=== PATIENT | female | born 1970 | race Caucasian/White ===

== ENCOUNTER 2016-10-24 16:42 | Inpatient (IN) ==
[2016-10-24 19:21] LABS: BUN/Creatinine Ratio 6 (6-26); Calcium 9.8 mg/dL (8.6-10.8); Carbon Dioxide 17 mEq/L (19-29); Chloride 89 mEq/L (98-109); Glucose 84 mg/dL (70-99); Osmolality,Calculated 250 (280-300); Sodium 122 mEq/L (136-145); eGFR For African Americans > 60 (> 60); eGFR For Non-African Americans > 60 (> 60)
[2016-10-24 19:37] LABS: Blood Urea Nitrogen 4 mg/dL (7-20)
--- NOTE | 2016-10-24 20:48 | Emergency Department Note ---
Disposition Clinical Impression: Hyponatremia, Hypomagnesemia, Chronic alcohol abuse Disposition: Admitted As Inpatient Condition: Good Time of Disposition: 22:46 General Adult HPI - General Chief complaint: ED Dizziness Stated complaint: Spasms/Electrolites are low Time Seen by Provider: 10/24/16 17:21 Source: patient Limitations: no limitations Nursing Notes Reviewed: Yes Vital Signs Reviewed: Yes - History of Present Illness HPI Narrative: 46-year-old female history of hypertension, hyperlipidemia, chronic alcohol presents to the ED for weakness and concern for electrolyte abnormality. She takes hydrochlorothiazide and Lasix on a daily basis. She has been drinking 6 glasses of water every day. She drinks roughly 2 beers a day last drink last night. She has been feeling weak and lightheaded over the past few days reports this feels similar 8 months ago when her sodium level was low. She has been urinating more often than usual. Denies any dysuria or hematuria. Denies any history of diabetes. Denies any recent illness, fever, cough, chest pain, shortness of breath or abdominal pain. Has been eating normally. No known history cancer. Pain Scale: 10 - Related Data Home Medications Medication Instructions Recorded Confirmed Montelukast [Singulair] 10 mg PO DAILY 12/05/15 10/24/16 Ranitidine HCl [Heartburn Relief] 300 mg PO DAILY 12/05/15 10/24/16 Amlodipine [Norvasc] 5 mg PO DAILY 04/09/16 10/24/16 Ibuprofen [Motrin] 800 mg PO Q6H PRN 04/09/16 10/24/16 Allopurinol [Zyloprim 100 MG] 100 mg PO DAILY 10/24/16 10/24/16 Gabapentin [Neurontin] 100 mg PO QID 10/24/16 10/24/16 Lansoprazole [Prevacid] 30 mg PO DAILY 10/24/16 10/24/16 Losartan [Cozaar] 25 mg PO DAILY 10/24/16 10/24/16 Mometasone/Formoterol [Dulera 200 2 puff IH BID 10/24/16 10/24/16 Mcg/5 Mcg Inhaler] Multivitamin with Iron 1 each PO DAILY 10/24/16 10/24/16 [Multivitamins with Iron] Ondansetron HCl [Zofran] 4 mg PO Q8H PRN 10/24/16 10/24/16 OxyCODONE/APAP 5/325 [Percocet 1 each PO Q6H PRN 10/24/16 10/24/16 5/325 MG] Simvastatin [Zocor] 20 mg PO HS 10/24/16 10/24/16 Umeclidinium [place] [Incruse 62.5 mcg IH DAILY 10/24/16 10/24/16 Ellipta] Previous Rx's Medication Instructions Recorded Albuterol Neb [Proventil Neb] 2.5 mg IH Q4HR PRN #120 vial.neb 04/14/16 Albuterol Sulfate [Proair Hfa] 2 puff IH Q4-6H PRN #1 inh 04/14/16 Allergies Allergy/AdvReac Type Severity Reaction Status Date / Time hydrocodone [From Vicodin] AdvReac Hives Verified 03/31/16 08:10 sulfamethoxazole AdvReac Itching Verified 03/31/16 08:10 [From Bactrim] trimethoprim [From Bactrim] AdvReac Itching Verified 03/31/16 08:10 All systems ED: reviewed and negative except as stated. Constitutional: Reports: weakness. Denies: fever, chills Eyes: Denies: vision change Cardiovascular: Denies: chest pain, palpitations, dyspnea on exertion Respiratory: Denies: cough, dyspnea Gastrointestinal: Denies: abdominal pain, nausea, vomiting Genitourinary: Reports: frequency. Denies: urgency, dysuria, hematuria Musculoskeletal: Denies: back pain Neurological: Reports: weakness. Denies: headache, numbness, confusion, vertigo Endocrine: Reports: polyuria. Denies: polydipsia Past Medical History - Past Medical History Attestation: Yes The following information was validated with the patient. 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 Absent : tenderness - Respiratory Respiratory exam: Present: normal lung sounds bilaterally. Absent: respiratory distress, wheezes - Cardiovascular Cardiovascular exam: Present: regular rate, normal rhythm, normal heart sounds. Absent: systolic murmur, diastolic murmur - Abdominal Exam Abdominal exam: Present: soft, Non-Tender, normal bowel sounds. Absent: tenderness, distention, guarding, rebound, rigidity - Extremities Exam Extremities exam: Present: normal inspection, full ROM, normal capillary refill. Absent: tenderness, pedal edema, calf tenderness - Back Exam Back exam: Present: normal inspection, full ROM. Absent: tenderness - Neurological Exam Neurological exam: Present: alert, oriented X3, CN II-XII intact, normal gait. Absent: motor sensory deficit - Expanded Neurological Exam Patient oriented to: Present: person, place, time Speech: Present: fluid speech Cranial nerves: EOM function (II, III, IV, ): Normal, facial sensation (V): Normal, facial palsy (VII): Normal, gag reflex (IX): Normal, spinal accessory function (XI): Normal, tongue deviation (XII): Normal Cerebellar function: normal gait, Romberg normal Motor strength - LUE: 5/5 Motor strength - RUE: 5/5 Motor strength - LLE: 5/5 Motor strength - RLE: 5/5 Upper motor neuron exam: tommy neglect: Absent bilaterally, pronator drift: Absent bilaterally Sensory exam upper extremity: light touch: Normal Sensory exam lower extremity: light touch: Normal - Psychiatric Psychiatric exam: Present: normal affect, normal mood - Skin Skin exam: Present: warm, dry, intact, normal color Course Course Narrative: 46-year-old female presented with weakness and concern for electrolyte abnormality. Her sodium is 122. This is the lowest it has been in over a year. This is likely due to a renal etiology as she takes multiple diuretics. No known history of cancer. Patients otherwise in no apparent distress. Neurologic exam is normal without any vocal neural deficits. Gait is normal. Admits to drinking 2 beers last night from today. Lungs are clear auscultation bilaterally. Heart's regular rate and rhythm. Abdomen is soft nontender nondistended. She will need admission for hyponatremia possibly from a beer potomania. Her magnesium is low at 1.5. Will give 2 g magnesium here. Labs are otherwise unremarkable. Urine is not consistent with infection however it is diluted. She is started on normal saline maintenance at 125 mL per hour. Will carefully watch the correction of sodium and to not correct to quickly to prevent [place] Myelinolysis - Consultations Consultation #1: Spoke with on-call hospitalist meredith You to admit for hyponatremia. No further orders at this time Time: 22:45 Vital Signs Temperature 98.2 F 10/24/16 17:19 Pulse Rate 94 10/24/16 17:19 Respiratory Rate 18 10/24/16 17:19 Blood Pressure 182/104 10/24/16 17:19 O2 Sat by Pulse Oximetry 97 10/24/16 17:19 Temperature 98.1 F 10/25/16 00:26 Pulse Rate 90 10/25/16 00:26 Respiratory Rate 16 10/25/16 00:26 Blood Pressure 142/86 10/25/16 00:26 O2 Sat by Pulse Oximetry 96 10/25/16 00:26 Oxygen Delivery Oxygen Delivery Room Air Medical Decision Making - Medical Records Medical records reviewed: Yes I reviewed the patient's medical records. - Lab Data Lab results reviewed: Yes I reviewed the patient's lab results. Result diagrams: 10/24/16 18:45 10/24/16 23:37 Lab Results 10/24/16 10/24/16 10/24/16 Range/Units 18:45 18:45 18:45 WBC 10.7 (4.3-11.1) K/mcL RBC 4.29 (3.82-4.97) M/mcL Hgb 12.1 (11.5-15.4) g/dL Hct 35.7 (35.3-44.9) % MCV 83.2 (83.0-100.0) fL MCH 28.2 (28.0-33.3) pg MCHC 33.9 (31.6-35.5) g/dL RDW 15.6 H (11.5-14.5) % Plt Count 358 (140-400) K/mcL MPV 11.1 (9.4-12.4) fL Immature Gran % 0.4 (0-4) % Seg Neutrophils % 72.6 % Lymphocytes % 17.9 % Monocytes % 7.4 % Eosinophils % 0.9 % Basophils % 0.8 % Neutrophils # 7.7 (1.6-8.9) K/mcL Lymphocytes # 1.9 (0.6-4.6) K/mcL Monocytes # 0.8 (0.0-1.3) K/mcL Eosinophils # 0.1 (0.0-0.6) K/mcL Basophils # 0.1 (0.0-0.2) K/mcL PT 11.8 (9.4-12.1) Seconds INR 1.1 APTT 29.4 (26.0-36.0) Seconds Sodium 122 L (136-145) mEq/L Potassium 4.0 (3.5-4.5) mEq/L Chloride 89 L (98-109) mEq/L Carbon Dioxide 17 L (19-29) mEq/L BUN 4 L (7-20) mg/dL Creatinine 0.67 (0.57-1.11) mg/dL Est GFR ( Amer) > 60 (> 60) Est GFR (Non-Af Amer) > 60 (> 60) BUN/Creatinine Ratio 6 (6-26) Glucose 84 (70-99) mg/dL Calculated Osmolality 250 L (280-300) Calcium 9.8 (8.6-10.8) mg/dL Magnesium 1.5 L (1.6-2.6) mg/dL Total Bilirubin 0.8 (0.2-1.2) mg/dL Direct Bilirubin 0.3 (0.0-0.5) mg/dL Indirect Bilirubin 0.5 (0.0-1.2) mg/dL AST 46 H (5-34) Units/L ALT 26 (0-55) Units/L Alkaline Phosphatase 85 (38-126) Units/L Serum Total Protein 8.1 (6.0-8.3) g/dL Albumin 4.2 (3.5-5.0) g/dL Globulin 3.9 H (2.4-3.5) g/dL Albumin/Globulin Ratio 1.1 (1.1-2.2) Urine Color (Yellow) Urine Clarity (Clear) Urine pH (5.0-8.0) pH Units Ur Specific [place] (1.010-1.025) Urine Protein (Neg-Trace) mg/dL Urine Glucose (UA) (Normal) mg/dL Urine Ketones (Negative) mg/dL Urine Blood (Negative) Urine Nitrite (Negative) Urine Bilirubin (Negative) Urine Urobilinogen (Normal) mg/dL Ur Leukocyte Esterase (Negative) Ur Culture Indicated? (NO) Urine Test (Negative) 10/24/16 10/24/16 10/24/16 Range/Units 20:40 20:40 23:37 WBC (4.3-11.1) K/mcL RBC (3.82-4.97) M/mcL Hgb (11.5-15.4) g/dL Hct (35.3-44.9) % MCV (83.0-100.0) fL MCH (28.0-33.3) pg MCHC (31.6-35.5) g/dL RDW (11.5-14.5) % Plt Count (140-400) K/mcL MPV (9.4-12.4) fL Immature Gran % (0-4) % Seg Neutrophils % % Lymphocytes % % Monocytes % % Eosinophils % % Basophils % % Neutrophils # (1.6-8.9) K/mcL Lymphocytes # (0.6-4.6) K/mcL Monocytes # (0.0-1.3) K/mcL Eosinophils # (0.0-0.6) K/mcL Basophils # (0.0-0.2) K/mcL PT (9.4-12.1) Seconds INR APTT (26.0-36.0) Seconds Sodium 125 L (136-145) mEq/L Potassium 3.6 (3.5-4.5) mEq/L Chloride 92 L (98-109) mEq/L Carbon Dioxide 22 (19-29) mEq/L BUN 4 L (7-20) mg/dL Creatinine 0.69 (0.57-1.11) mg/dL Est GFR ( Amer) > 60 (> 60) Est GFR (Non-Af Amer) > 60 (> 60) BUN/Creatinine Ratio 6 (6-26) Glucose 87 (70-99) mg/dL Calculated Osmolality 256 L (280-300) Calcium 9.4 (8.6-10.8) mg/dL Magnesium (1.6-2.6) mg/dL Total Bilirubin (0.2-1.2) mg/dL Direct Bilirubin (0.0-0.5) mg/dL Indirect Bilirubin (0.0-1.2) mg/dL AST (5-34) Units/L ALT (0-55) Units/L Alkaline Phosphatase (38-126) Units/L Serum Total Protein (6.0-8.3) g/dL Albumin (3.5-5.0) g/dL Globulin (2.4-3.5) g/dL Albumin/Globulin Ratio (1.1-2.2) Urine Color Yellow (Yellow) Urine Clarity Clear (Clear) Urine pH 6.0 (5.0-8.0) pH Units Ur Specific [place] 1.007 L (1.010-1.025) Urine Protein Negative (Neg-Trace) mg/dL Urine Glucose (UA) Normal (Normal) mg/dL Urine Ketones Negative (Negative) mg/dL Urine Blood Negative (Negative) Urine Nitrite Negative (Negative) Urine Bilirubin Negative (Negative) Urine Urobilinogen Normal (Normal) mg/dL Ur Leukocyte Esterase Negative (Negative) Ur Culture Indicated? NO (NO) Urine Test Negative (Negative) Attestation Statement - Attestation Attestation: I examined this patient and my medical decision-making was reviewed with the SMASH FIXER/PA/Advanced Practice Nurse/Resident Physician. I agree with the documented findings, disposition and treatment plan as described except to the extent set forth below.
[2016-10-24 20:53] LABS: Bilirubin,Urine Negative (Negative); Blood,Urine Negative (Negative); Clarity,Urine Clear (Clear); Color,Urine Yellow (Yellow); Glucose,Urine (UA) Normal (Normal); Ketones,Urine Negative (Negative); Leukocyte Esterase,Urine Negative (Negative); Nitrite,Urine Negative (Negative); Protein,Urine Negative (Neg-Trace); Specific Gravity,Urine 1.007 (1.010-1.025); Urobilinogen,Urine Normal (Normal)
[2016-10-24] MEDS ORDERED: 0.9 % Sodium Chloride 1,000 ML IVC SCH (21:00)
[2016-10-24 21:41] LABS: Magnesium 1.5 mg/dL (1.6-2.6)
[2016-10-24] MEDS ORDERED: Magnesium Sulfate 20 gm/500mL 20 GM/500 ML IV.SOLN IVC SCH (21:45)
[2016-10-24 22:54] LABS: Basophils # 0.1 K/mcL (0.0-0.2); Basophils % 0.8 %; Eosinophils # 0.1 K/mcL (0.0-0.6); Eosinophils % 0.9 %; Hematocrit 35.7 % (35.3-44.9); Hemoglobin 12.1 g/dL (11.5-15.4); Immature Granulocytes % 0.4 % (0-4); Lymphocytes # 1.9 K/mcL (0.6-4.6); Lymphocytes % 17.9 %; Mean Corpuscular HGB Conc 33.9 g/dL (31.6-35.5); Mean Corpuscular Hemoglobin 28.2 pg (28.0-33.3); Mean Corpuscular Volume 83.2 fL (83.0-100.0); Mean Platelet Volume 11.1 fL (9.4-12.4); Monocytes # 0.8 K/mcL (0.0-1.3); Monocytes % 7.4 %; Neutrophils # 7.7 K/mcL (1.6-8.9); Platelet Count 358 K/mcL (140-400); Red Blood Count 4.29 M/mcL (3.82-4.97); Red Cell Distribution Width 15.6 % (11.5-14.5); Segmented Neutrophils % 72.6 %
[2016-10-24] MEDS ORDERED: Ondansetron 4 MG/2 ML VIAL IVP ONE (22:57)
[2016-10-24 23:00] LABS: INR 1.1; Prothrombin Time 11.8 Seconds (9.4-12.1)
[2016-10-24 23:03] LABS: Activated Partial Thrombo Time 29.4 Seconds (26.0-36.0)
[2016-10-24 23:06] LABS: Alanine Aminotransferase 26 Units/L (0-55); Albumin 4.2 g/dL (3.5-5.0); Albumin/Globulin Ratio 1.1 (1.1-2.2); Alkaline Phosphatase 85 Units/L (38-126); Aspartate Amino Transferase 46 Units/L (5-34); Bilirubin,Direct 0.3 mg/dL (0.0-0.5); Bilirubin,Indirect 0.5 mg/dL (0.0-1.2); Bilirubin,Total 0.8 mg/dL (0.2-1.2); Globulin 3.9 g/dL (2.4-3.5); Total Protein 8.1 g/dL (6.0-8.3)
[2016-10-24 23:54] LABS: BUN/Creatinine Ratio 6 (6-26); Calcium 9.4 mg/dL (8.6-10.8); Carbon Dioxide 22 mEq/L (19-29); Chloride 92 mEq/L (98-109); Glucose 87 mg/dL (70-99); Osmolality,Calculated 256 (280-300); Potassium 3.6 mEq/L (3.5-4.5); Sodium 125 mEq/L (136-145); eGFR For African Americans > 60 (> 60); eGFR For Non-African Americans > 60 (> 60)
[2016-10-24 23:55] LABS: Blood Urea Nitrogen 4 mg/dL (7-20)
[2016-10-25 01:48] LABS: Amphetamine Screen,Urine Negative ng/mL (Cutoff=1000); Barbiturate Screen,Urine Negative ng/mL (Cutoff=200); Benzodiazepines Screen,Urine Negative ng/mL (Cutoff=200); Cannabinoid Screen,Urine Negative ng/mL (Cutoff = 50); Cocaine Screen,Urine Negative ng/mL (Cutoff= 300); Opiate Screen,Urine Negative ng/mL (Cutoff=300); Phencyclidine Screen,Urine Negative ng/mL (Cutoff=25)
--- NOTE | 2016-10-25 03:33 | Internal Med History&Physical ---
Date of Encounter: 10/25/16 Time of Encounter: 03:30 Assessment and Plan (1) Hyponatremia Current visit: Yes Status: Acute Hyponatremia likely multifactorial due to beer potomania and possibly induced by medications. Continue monitoring sodium level closely. Neuro checks. Avoid over correction of sodium levels. Discussed with patient. We will obtain a consultation with nephrology for further recommendations. (2) Hypomagnesemia Current visit: Yes Status: Acute Magnesium was supplemented via IV by emergency department staff. We will continue monitoring magnesium levels and replacing accordingly. (3) Chronic alcohol abuse Current visit: Yes Status: Acute (4) DVT prophylaxis Current visit: No Status: Acute Will give heparin prophylaxis according to hospital protocol. (5) Essential hypertension Current visit: No Status: Chronic Avoid thiazides or diuretic for hypertension management. Monitoring closely. (6) Cellulitis Current visit: Yes Status: Acute Confirm with the pharmacy and resume her home medications. As per the patient, cellulitis is doing well. Qualifiers: Site of cellulitis: extremity Site of cellulitis of extremity: lower extremity Laterality: right Qualified Code(s): L03.115 - Cellulitis of right lower limb Internal Medicine - H&P: HPI Chief complaint: "I think my sodium is low" Admitted From: Emergency Dept Plans for Post Hospital Care: Home History of present illness: Ms. Su is a 46 year old female with history of hypertension, hyperlipidemia, chronic alcohol, chronic pain presents to the ED for weakness and concern for electrolyte abnormality. She takes hydrochlorothiazide and Lasix on a daily basis. She has been drinking 6 glasses of water every day. She drinks roughly 2 beers a day last drink last night. She has been feeling weak and lightheaded over the past few days reports this feels similar last summer when her sodium level was low and was admitted to the [facility] Intensive Care Unit. She states has been urinating more often than usual. Denies any dysuria or hematuria, denies fever. The patient was recently discharged from another facility due to a cellulitis, she is taking antibiotics for an infection in her right lower extremity. Denies any history of diabetes. Denies any recent illness, fever, cough, chest pain, shortness of breath or abdominal pain. Has been eating normally. No known history cancer. Upon admission her sodium was 122, last sodium obtained is 125. The patient Lives in [facility], however she came to [place] because Recently a family member Was in the Hospital Because He Had a Drug Overdose. Past Med Surg Social Fam HX - Past Medical History Medical history: arthritis, asthma, GERD, hyperlipidemia, hypertension, other Psychiatric history: bipolar - Past Surgical History Surgical History: orthopedic, other (Left ankle and leg fracture repair surgery) - Social History Smoking Status: Never smoker Smokeless Tobacco Status: No Alcohol use: occasionally Drug use: none - Family History Mother Living Status: Still Living Hx Family Cardiac Disorders: Yes (HTN) Hx Family Cancer: Yes (Uterine CA) Father Hx Family Neurologic Disorders: Yes (CVA) Internal Medicine - H&P: Meds Montelukast [Singulair] 10 mg PO DAILY 12/05/15 [History] Ranitidine HCl [Heartburn Relief] 300 mg PO DAILY 12/05/15 [History] Amlodipine [Norvasc] 5 mg PO DAILY 04/09/16 [History] Ibuprofen [Motrin] 800 mg PO Q6H PRN 04/09/16 [History] Albuterol Neb [Proventil Neb] 2.5 mg IH Q4HR PRN #120 vial.neb 04/14/16 [Rx] Albuterol Sulfate [Proair Hfa] 2 puff IH Q4-6H PRN #1 inh 04/14/16 [Rx] Allopurinol [Zyloprim 100 MG] 100 mg PO DAILY 10/24/16 [History] Gabapentin [Neurontin] 100 mg PO QID 10/24/16 [History] Lansoprazole [Prevacid] 30 mg PO DAILY 10/24/16 [History] Losartan [Cozaar] 25 mg PO DAILY 10/24/16 [History] Mometasone/Formoterol [Dulera 200 Mcg/5 Mcg Inhaler] 2 puff IH BID 10/24/16 [ History] Multivitamin with Iron [Multivitamins with Iron] 1 each PO DAILY 10/24/16 [ History] Ondansetron HCl [Zofran] 4 mg PO Q8H PRN 10/24/16 [History] OxyCODONE/APAP 5/325 [Percocet 5/325 MG] 1 each PO Q6H PRN 10/24/16 [History] Simvastatin [Zocor] 20 mg PO HS 10/24/16 [History] Umeclidinium [place] [Incruse Ellipta] 62.5 mcg IH DAILY 10/24/16 [History] Allergies hydrocodone [From Vicodin] Adverse Reaction (Verified 03/31/16 08:10) Hives sulfamethoxazole [From Bactrim] Adverse Reaction (Verified 03/31/16 08:10) Itching trimethoprim [From Bactrim] Adverse Reaction (Verified 03/31/16 08:10) Itching All Systems PM: A 10-system review of systems was performed and is negative for pertinent findings except as documented above in the HPI. - Constitutional Constitutional: as per HPI - EENT Eyes: as per HPI, no change in vision, no discharge, no pain, no photophobia Ears: as per HPI, no ear discharge, no ear pain, no tinnitus Nose, mouth and throat: as per HPI, no dysphagia, no nasal discharge, no neck pain, no sore throat - Breasts Breasts: as per HPI - Cardiovascular Cardiovascular ROS IM: as per HPI, no chest pain, no diaphoresis, no dyspnea, no lightheadedness, no palpitations, no syncope - Respiratory Respiratory: as per HPI, no cough, no dyspnea, no wheezing, no excessive phlegm production - Gastrointestinal Gastrointestinal: as per HPI, no abdominal pain, no diarrhea, no hematemesis, no hematochezia, no melena, no nausea, no vomiting - Genitourinary Genitourinary: as per HPI, no change in urinary stream, no dysuria, no flank pain, no hematuria Menstruation: as per HPI - Musculoskeletal Musculoskeletal ROS IM: as per HPI, no numbness, no tingling - Integumentary Integumentary IM: as per HPI, no rash, no unusual bruising - Neurological Neurological ROS: as per HPI, no confusion, no convulsions, no focal weakness, no numbness, no tingling, no tremor(s) - Psychiatric Psychiatric: as per HPI - Endocrine Endocrine IM: as per HPI - Hematologic/Lymphatic Hematologic/Lymphatic: as per HPI, no easy bruising - Allergic/Immunologic Allergic/Immunologic: as per HPI - Constitutional Vitals: Temp Pulse Resp BP Pulse Ox 98.1 F 83 16 121/77 94 10/25/16 03:12 10/25/16 03:12 10/25/16 03:12 10/25/16 03:12 10/25/16 03:12 General appearance: Present: cooperative, A&O X 3, pleasant, obese Exam: She has multiple tattoos. - Head Head exam: Present: atraumatic, normocephalic - Eye Eye exam: Present: PERRL, conjuntiva pink, sclera anicteric Pupils: Present: PERRL - Neck Neck exam general surgery: Present: supple, trachea midline. Absent: lymphadenopathy - Respiratory Respiratory exam: Present: CTAB. Absent: accessory muscle use, rales, rhonchi, wheezes - Cardiovascular Cardiovascular exam: Present: RRR, +S1, +S2. Absent: diastolic murmur, gallop, rubs, systolic murmur - GI/Abdominal GI/Abdominal exam: Present: normal bowel sounds, soft, no peritoneal signs. Absent: distended, tenderness - Extremities Exam Extremities exam: Present: warm, radial pulses palpable and symetrical. Absent : calf tenderness, cyanotic, pedal edema - Neurological Exam Neurological exam: Present: CN II-XII intact, oriented X3, no focal deficits. Absent: pronater drift, facial droop, speech deficit - Skin Skin exam: Present: dry, intact Internal Med - H&P Results - Labs CBC & Chem 7: 10/24/16 18:45 10/24/16 23:37
[2016-10-25] MEDS ORDERED: Acetaminophen 325 MG TABLET PO PRN (03:56)
[2016-10-25] MEDS ORDERED: Naloxone 0.4 MG/ML INJ IVP PRN (03:56)
[2016-10-25] MEDS ORDERED: Magnesium Sulfate 2 GM in D5% in Water 100 ML IVPB ONE (04:01)
[2016-10-25] MEDS ORDERED: *HR* LORazepam 2 MG/ML VIAL IVP PRN ×2 (04:18)
[2016-10-25] MEDS: *HR* OxyCODONE/APAP 5/325 TABLET PO PRN ×3 (04:54→18:22)
[2016-10-25] MEDS: *HR* Heparin 5,000 UNIT/ML VIAL SQ SCH ×2 (04:55→18:23)
[2016-10-25 05:43] LABS: BUN/Creatinine Ratio 6 (6-26); Calcium 9.6 mg/dL (8.6-10.8); Carbon Dioxide 21 mEq/L (19-29); Chloride 97 mEq/L (98-109); Glucose 96 mg/dL (70-99); Osmolality,Calculated 269 (280-300); Potassium 3.4 mEq/L (3.5-4.5); Sodium 131 mEq/L (136-145); eGFR For African Americans > 60 (> 60); eGFR For Non-African Americans > 60 (> 60)
[2016-10-25 05:49] LABS: Blood Urea Nitrogen 4 mg/dL (7-20)
[2016-10-25] MEDS: Magnesium Oxide 400 MG TABLET PO SCH ×2 (09:11→20:54)
[2016-10-25] MEDS: Thiamine (B-1) 100 MG TABLET PO SCH (09:11)
[2016-10-25] MEDS: Vitamin B Complex/Vit C/Vit E 1 EACH TABLET PO SCH (09:11)
[2016-10-25] MEDS: Folic Acid 1 MG TABLET PO SCH (09:11)
[2016-10-25] MEDS: *HR* LORazepam 2 MG/ML VIAL IVP PRN ×2 (09:12→23:18)
--- NOTE | 2016-10-25 13:32 | Nephrology Consult Note ---
Date of Encounter: 10/25/16 Time of Encounter: 13:31 Assessment and Plan (1) Hyponatremia Current Visit: Yes Status: Acute most likely multifactorial due to polydipsia, chronic alcohol abuse, and vomiting Agree with stopping IVF to not correct to fast. Do not want to change sodium level by more than 10 meq/L in 24 hours. Fluid restriction to 2 L per day. Encouraged patient to stop drinking alcohol. If she continues to drink, she needs to eat salty foods when she is drinking. check urine: osmolatiy, sodium, creatinine, protein, creatinine to protein ratio Thank you for consulting [facility]. (2) Hypomagnesemia Current Visit: Yes Status: Acute patient has received 4g of magnesium replacement recheck History of Present Illness - Reason for Consult Consult date: 10/25/16 hyponatremia - Chief Complaint muscle cramping - History of Present Illness Betina Su is a 46 yo female with a PMH of HTN, hyperlipidemia, chronic pain, and alcohol abuse with previous hospitalizations for hyponatremia who came to the hospital with a 3 day history of headache, "feeling spacey," and the muscles of her legs cramping and having spasms. She drinks 2-3 liters of water per day and 3 liters of water per night. She states that she is always thirsty and always peeing. She drinks 2-3 24 oz beers 3-4 nights a week; however, her son overdosed (and was revived) 2 days before she came to the ER and she ended up drinking 6 24 oz beers that night. The following morning she woke up feeling hung-over and drank another beer to feel better but it didn't work and she ended up vomiting, at least 4 times. She states that by the time she made it to the ER she couldn't stop dry heaving and had stopped trying to drink - she had tried Sprite and various other fluids once she started vomiting. Her most recent hospitalization for hyponatremia was this summer. She was having a yard sale and had a gallon jug of water and drank at least 1 1/2 jugs of water throughout the course of the day and the next day she was in the ICU. She says that she was told that the cause was HCTZ and steroids she was taking for asthma because she was not on controlled meds at that point in time. She says that she was told to follow-up outpatient with a special inspector but her family doctor never made the referral. She has since stopped HCTZ and is now on controller medication for asthma. She takes motrin everyday, multiple times a day for chronic knee pain. She was discharged from the hospital recently (?11 days) for an admission due to cellulitis of her leg. She states she was given IV antibiotics while inpatient and discharged with doxycycline. Past Med Surg Social Fam HX - Past Medical History Medical history: arthritis, asthma, GERD, hyperlipidemia, hypertension, other Psychiatric history: bipolar - Past Surgical History Surgical History: orthopedic, other (Left ankle and leg fracture repair surgery) - Social History Smoking Status: Never smoker Smokeless Tobacco Status: No Alcohol use: occasionally Drug use: none - Family History Mother Living Status: Still Living Hx Family Cardiac Disorders: Yes (HTN) Hx Family Cancer: Yes (Uterine CA) Father Hx Family Neurologic Disorders: Yes (CVA) Medications and Allergies Montelukast [Singulair] 10 mg PO DAILY 12/05/15 [History] Ranitidine HCl [Heartburn Relief] 300 mg PO DAILY 12/05/15 [History] Amlodipine [Norvasc] 5 mg PO DAILY 04/09/16 [History] Ibuprofen [Motrin] 800 mg PO Q6H PRN 04/09/16 [History] Albuterol Neb [Proventil Neb] 2.5 mg IH Q4HR PRN #120 vial.neb 04/14/16 [Rx] Albuterol Sulfate [Proair Hfa] 2 puff IH Q4-6H PRN #1 inh 04/14/16 [Rx] Allopurinol [Zyloprim 100 MG] 100 mg PO DAILY 10/24/16 [History] Gabapentin [Neurontin] 100 mg PO QID 10/24/16 [History] Lansoprazole [Prevacid] 30 mg PO DAILY 10/24/16 [History] Losartan [Cozaar] 25 mg PO DAILY 10/24/16 [History] Mometasone/Formoterol [Dulera 200 Mcg/5 Mcg Inhaler] 2 puff IH BID 10/24/16 [ History] Multivitamin with Iron [Multivitamins with Iron] 1 each PO DAILY 10/24/16 [ History] Ondansetron HCl [Zofran] 4 mg PO Q8H PRN 10/24/16 [History] OxyCODONE/APAP 5/325 [Percocet 5/325 MG] 1 each PO Q6H PRN 10/24/16 [History] Simvastatin [Zocor] 20 mg PO HS 10/24/16 [History] Umeclidinium [place] [Incruse Ellipta] 62.5 mcg IH DAILY 10/24/16 [History] Allergies hydrocodone [From Vicodin] Adverse Reaction (Verified 03/31/16 08:10) Hives sulfamethoxazole [From Bactrim] Adverse Reaction (Verified 03/31/16 08:10) Itching trimethoprim [From Bactrim] Adverse Reaction (Verified 03/31/16 08:10) Itching Review of Systems Constitutional: fatigue, headache(s), malaise, no fever(s) Cardiovascular: no chest pain Gastrointestinal: vomiting Musculoskeletal: arthralgias, muscle cramps, other (spasms) Endocrine: polydipsia, polyuria Exam - Vital Signs Vital signs: Initial Vital Signs Temp Pulse Resp BP Pulse Ox 98.2 F 94 18 182/104 97 10/24/16 17:19 10/24/16 17:19 10/24/16 17:19 10/24/16 17:19 10/24/16 17:19 Vital Signs - Last 8 Hours Temp Pulse Resp BP Pulse Ox 10/25/16 12:13 98.2 F 88 15 111/67 99 10/25/16 09:24 94 10/25/16 08:28 97.8 F 86 15 102/67 94 Intake and Output 10/24/16 10/25/16 10/25/16 23:59 07:59 15:59 Intake Total 240 / 240 Output Total 300 / 300 100 / 100 Balance -300 / -250 140 / 140 Intake: Oral 240 / 240 Output: Urine 300 / 300 100 / 100 Other: Meal Breakfast Percent of Meal Consumed 100% # Voids 1 1 # Bowel Movements 1 Blood Glucose* 120 102 - General Appearance General appearance: well-developed, well-nourished, appears started age, obese EENT: mucous membranes moist Neck: supple Respiratory: clear Cardiology: no murmurs, regular rate, regular rhythm, normal S1, normal S2 Gastrointestinal: normoactive bowel sounds Integumentary: no rash, warm and dry Neurologic: no focal deficit, alert and oriented x3, CN 3-12 intact Musculoskeletal: no deformities, no erythema Psychiatric: mood/affect appropriate, cooperative Results - Lab Results 10/24/16 18:45 10/25/16 04:43 Most recent lab results Calcium 9.6 mg/dL (8.6-10.8) 10/25/16 04:43 Magnesium 1.5 mg/dL (1.6-2.6) L 10/24/16 18:45 Consult Discharge Plan - Plan Referrals: NO,PCP [Primary Care Provider] -
[2016-10-25] MEDS ORDERED: Albuterol 2.5 MG/3 ML NEBULIZER IH PRN (16:05)
[2016-10-25] MEDS ORDERED: Ibuprofen 800 MG TABLET PO PRN (16:05)
--- NOTE | 2016-10-25 16:12 | Event Note ---
Date of Encounter: 10/25/16 Time of Encounter: 10:30 Patient seen and examined. On examination, patient initially asleep and awakened easily to voice. She states she is extremely tired but denies pain at this time. She states she was able to most of her breakfast. Outpatient, she was on Doxy for her cellulitis in her right lower extremity that appears far improved from last week according to the patient, will continue. She is also endorsing diarrhea with the Doxy, will add probiotics. Hyponatremia improved. Mild hypomagnesemia and hypokalemia also noted, we will replete both. Urinalysis negative. Tox screen negative. Nephrology on board, appreciate their recommendations. Given that her initial sodium was 122, will initiate fluid restricted diet. Continue CIWA scoring.
[2016-10-25 17:36] LABS: Creatinine,Urine 146 mg/dL; Protein/Creatinine Ratio,Urine 0.08 mg/mg (0-0.20)
[2016-10-25 17:46] LABS: Sodium, Urine < 20.0 mEq/L
[2016-10-25 18:14] LABS: BUN/Creatinine Ratio 12 (6-26); Blood Urea Nitrogen 9 mg/dL (7-20); Calcium 9.5 mg/dL (8.6-10.8); Carbon Dioxide 19 mEq/L (19-29); Chloride 103 mEq/L (98-109); Glucose 96 mg/dL (70-99); Osmolality,Calculated 283 (280-300); Potassium 4.2 mEq/L (3.5-4.5); Sodium 137 mEq/L (136-145); eGFR For African Americans > 60 (> 60); eGFR For Non-African Americans > 60 (> 60)
[2016-10-25] MEDS: Gabapentin 100 MG CAPSULE PO SCH ×2 (18:22→20:54)
[2016-10-25] MEDS: amLODIPine 5 MG TABLET PO SCH (18:22)
[2016-10-25] MEDS: Lactobacillus 1 EACH CAP.SPRINK PO SCH (18:22)
[2016-10-25] MEDS: Famotidine 20 MG TABLET PO SCH (18:23)
[2016-10-25] MEDS: (Umeclidinium Bromide [Incruse Ellipta] 62.5 MCG) IH SCH (20:54)
[2016-10-25] MEDS: Doxycycline 100 MG CAPSULE PO SCH (20:54)
[2016-10-25] MEDS ORDERED: Budesonide/Formoterol 160/4.5 MDI IH SCH (21:00)
[2016-10-25] MEDS ORDERED: Water for inj. (sterile) 10 ML IV ONE (23:14)
[2016-10-26 01:24] LABS: Osmolality,Urine 451 mOsm/kg (300-1090)
[2016-10-26] MEDS: *HR* OxyCODONE/APAP 5/325 TABLET PO PRN ×2 (04:22→10:14)
[2016-10-26] MEDS: *HR* Heparin 5,000 UNIT/ML VIAL SQ SCH (06:30)
[2016-10-26 06:37] LABS: Alanine Aminotransferase 21 Units/L (0-55); Alkaline Phosphatase 62 Units/L (38-126); Aspartate Amino Transferase 36 Units/L (5-34); BUN/Creatinine Ratio 15 (6-26); Bilirubin,Total 0.4 mg/dL (0.2-1.2); Blood Urea Nitrogen 11 mg/dL (7-20); Calcium 9.1 mg/dL (8.6-10.8); Carbon Dioxide 20 mEq/L (19-29); Chloride 105 mEq/L (98-109); Globulin 3.3 g/dL (2.4-3.5); Glucose 103 mg/dL (70-99); Magnesium 1.9 mg/dL (1.6-2.6); Osmolality,Calculated 284 (280-300); Potassium 3.8 mEq/L (3.5-4.5); Sodium 137 mEq/L (136-145); Total Protein 6.6 g/dL (6.0-8.3); eGFR For African Americans > 60 (> 60); eGFR For Non-African Americans > 60 (> 60)
[2016-10-26 06:39] LABS: Albumin 3.3 g/dL (3.5-5.0)
[2016-10-26 07:43] VITALS: BP 108/75
[2016-10-26] MEDS: Thiamine (B-1) 100 MG TABLET PO SCH (08:29)
[2016-10-26] MEDS: Lactobacillus 1 EACH CAP.SPRINK PO SCH (08:29)
[2016-10-26] MEDS: Magnesium Oxide 400 MG TABLET PO SCH (08:29)
[2016-10-26] MEDS: Doxycycline 100 MG CAPSULE PO SCH (08:30)
[2016-10-26] MEDS: Famotidine 20 MG TABLET PO SCH (08:30)
[2016-10-26] MEDS: Folic Acid 1 MG TABLET PO SCH (08:30)
[2016-10-26] MEDS: amLODIPine 5 MG TABLET PO SCH (08:30)
[2016-10-26] MEDS: Gabapentin 100 MG CAPSULE PO SCH (08:30)
[2016-10-26] MEDS: Vitamin B Complex/Vit C/Vit E 1 EACH TABLET PO SCH (08:30)
[2016-10-26] MEDS: (Umeclidinium Bromide [Incruse Ellipta] 62.5 MCG) IH SCH (08:31)
--- NOTE | 2016-10-26 10:46 | Nephrology Progress Note ---
Date of Encounter: 10/26/16 Time of Encounter: 10:43 - Assessment and Plan (1) Hyponatremia Current Visit: Yes Status: Acute Hx of prior Acute hyponatremic episodes at outside hospitals. I counseled her to avoid Beer intake, but if she were to continue beer consumption, then to increase the eating of salty foods/snacks. She should also restrict her fluids to 2L per day. The hyponatremia has resolved; will sign-off, but it would be reasonable for her to follow up for hyponatremia in my office in about 3-8 weeks. Thank you. (2) Essential hypertension Current Visit: No Status: Chronic Losartan is acceptable. No HCTZ should be given. (3) Hypomagnesemia Current Visit: Yes Status: Acute secondary to Alcoholism (4) Chronic alcohol abuse Current Visit: Yes Status: Acute Advised cutting back and cessation of alcohol intake. Subjective Principal diagnosis: Hyponatremia Interval history: Pt was seen/examined earlier today. She did not affirm uremic symptoms. No recent seizures. She feels better overall. She reported hx of beer and high water/Gatorade intake. Objective - Vital Signs Vital signs: Vital Signs Temp Pulse Resp BP Pulse Ox 10/26/16 07:40 97.4 F L 80 16 108/75 97 10/26/16 04:06 97.6 F 80 16 114/77 95 10/25/16 23:37 98.1 F 85 16 128/87 98 10/25/16 20:50 15 100 10/25/16 20:30 100 10/25/16 18:58 98.5 F 100 16 149/92 99 10/25/16 15:16 98.0 F 89 15 106/71 95 10/25/16 12:13 98.2 F 88 15 111/67 99 Intake and Output 10/25/16 10/26/16 10/26/16 23:59 07:59 15:59 Intake Total 0 / 0 240 / 240 Balance 0 / 0 240 / 240 Intake: Oral 0 / 0 240 / 240 Other: Meal Dinner Breakfast Percent of Meal Consumed 10% 100% Stool Size Small # Voids 3 1 # Bowel Movements 1 Weight 112.219 kg Blood Glucose* 106 114 Patient Weight 10/26/16 23:59 Weight 112.219 kg - General Appearance General appearance: Present: well-developed, well-nourished, appears started age , obese EENT: Present: ATNC, PERRL, mucous membranes moist Neck: Present: supple Respiratory: Present: clear Cardiology: Present: no edema, normal S1, normal S2 Gastrointestinal: Present: normoactive bowel sounds, no tenderness, no guarding Integumentary: Present: no rash, warm and dry Neurologic: Present: no focal deficit, no asterixis, alert and oriented x3 Musculoskeletal: Present: no deformities, no erythema, no cyanosis, no clubbing Psychiatric: Present: mood/affect appropriate, cooperative - Lab 10/24/16 18:45 10/26/16 04:54 Most recent lab results Calcium 9.1 mg/dL (8.6-10.8) 10/26/16 04:54 Magnesium 1.9 mg/dL (1.6-2.6) 10/26/16 04:54 Urine Creatinine 146 mg/dL 10/25/16 15:25 Urine Sodium < 20.0 mEq/L 10/25/16 15:25 Urine Total Protein 11 mg/dL (1-14) 10/25/16 15:25 Consult Discharge Plan - Plan Referrals: NO,PCP [Primary Care Provider] - 11/08/16 (Please follow up with your Primary Care Provider on the that was already scheduled appointment. )
--- NOTE | 2016-10-26 12:04 | Discharge Summary ---
Date of Encounter: 10/26/16 Time of Encounter: 09:30 - Discharge Diagnosis (1) Chronic alcohol abuse Priority: Secondary Status: Chronic Comments: Patient was counseled to stop drinking however she states she is not ready to stop drinking. She is counseled to limit her fluid intake to 2 L per day and to eat salty foods while drinking alcohol. (2) GERD (gastroesophageal reflux disease) Priority: Secondary Status: Chronic Qualifiers: Esophagitis presence: esophagitis presence not specified Qualified Code(s) : K21.9 - Gastro-esophageal reflux disease without esophagitis (3) DVT prophylaxis Priority: Primary Status: Acute Comments: Subcutaneous heparin while admitted (4) Essential hypertension Priority: Secondary Status: Chronic Comments: At home, patient is on losartan 25 mg daily, amlodipine 5 mg daily. She has been taken off her HCTZ. Controlled. Follow up outpatient. (5) Hyponatremia Priority: Primary Status: Resolved (6) Hypomagnesemia Priority: Primary Status: Resolved (7) Cellulitis Priority: Secondary Status: Chronic Comments: Was recently admitted and discharged and sent home on doxycycline for right lower extremity cellulitis. Area is improving, recommend continue Doxy course and follow-up outpatient. Qualifiers: Site of cellulitis: extremity Site of cellulitis of extremity: lower extremity Laterality: right Qualified Code(s): L03.115 - Cellulitis of right lower limb (8) Morbid obesity with BMI of 40.0-44.9, adult Priority: Secondary Status: Chronic - Discharge Medications Prescriptions: Folic Acid 1 mg PO DAILY #30 tablet Lactobacillus [Culturelle] 2 each PO DAILY #20 cap.sprink Magnesium Oxide [Mag-Ox] 400 mg PO BID #60 tablet Thiamine (B-1) [Vitamin B-1] 100 mg PO DAILY #30 tablet Home Medications: Montelukast [Singulair] 10 mg PO DAILY 12/05/15 [History] Ranitidine HCl [Heartburn Relief] 300 mg PO DAILY 12/05/15 [History] Amlodipine [Norvasc] 5 mg PO DAILY 04/09/16 [History] Ibuprofen [Motrin] 800 mg PO Q6H PRN 04/09/16 [History] Albuterol Neb [Proventil Neb] 2.5 mg IH Q4HR PRN #120 vial.neb 04/14/16 [Rx] Albuterol Sulfate [Proair Hfa] 2 puff IH Q4-6H PRN #1 inh 04/14/16 [Rx] Allopurinol [Zyloprim 100 MG] 100 mg PO DAILY 10/24/16 [History] Gabapentin [Neurontin] 100 mg PO QID 10/24/16 [History] Lansoprazole [Prevacid] 30 mg PO DAILY 10/24/16 [History] Losartan [Cozaar] 25 mg PO DAILY 10/24/16 [History] Mometasone/Formoterol [Dulera 200 Mcg/5 Mcg Inhaler] 2 puff IH BID 10/24/16 [ History] Multivitamin with Iron [Multivitamins with Iron] 1 each PO DAILY 10/24/16 [ History] Ondansetron HCl [Zofran] 4 mg PO Q8H PRN 10/24/16 [History] OxyCODONE/APAP 5/325 [Percocet 5/325 MG] 1 each PO Q6H PRN 10/24/16 [History] Simvastatin [Zocor] 20 mg PO HS 10/24/16 [History] Umeclidinium [place] [Incruse Ellipta] 62.5 mcg IH DAILY 10/24/16 [History] Doxycycline 100 mg PO BID capsule 10/26/16 [Rx] Folic Acid 1 mg PO DAILY #30 tablet 10/26/16 [Rx] Lactobacillus [Culturelle] 2 each PO DAILY #20 cap.sprink 10/26/16 [Rx] Magnesium Oxide [Mag-Ox] 400 mg PO BID #60 tablet 10/26/16 [Rx] Thiamine (B-1) [Vitamin B-1] 100 mg PO DAILY #30 tablet 10/26/16 [Rx] Allergies/Adverse Reactions: Allergies hydrocodone [From Vicodin] Adverse Reaction (Verified 03/31/16 08:10) Hives sulfamethoxazole [From Bactrim] Adverse Reaction (Verified 03/31/16 08:10) Itching trimethoprim [From Bactrim] Adverse Reaction (Verified 03/31/16 08:10) Itching Date of admission: 10/25/16 03:56 Primary care physician: PCP NO Consults: 10/25/16 04:02 Consult to [employer] Man [CONS] Routine Reason for SW Consult: alcohol use 10/25/16 07:00 Consult to Nephrology [CONS] Routine Consulting Provider: [facility]/ORIMI/PARG/KARRI Reason for Consult: hyponatremia Call Completed: No Discharging clinician: Carie Gale Anticipated date of discharge: 10/26/16 - Patient Status Disposition: Home, Self-Care Condition: Good Functional capacity at discharge: independent ambulation Overall status at discharge: patient is back to baseline - Discharge Instructions Follow Up With: MYLES,PCP [Primary Care Provider] - 11/08/16 (Please follow up with your Primary Care Provider on the that was already scheduled appointment. ) Yovani Arriola, [Partnered Physician] - Additional Instructions: Follow-up with primary care provider in one to 2 weeks, follow-up with nephrology in 3-8 weeks - Diet and Activity Activity: increase activity as tolerated Diet: regular diet (high sodium; 2L fluid restriction per day) Hospital course: Ms. Su is a 46 year old female with past medical history of hypertension, hyperlipidemia, chronic alcohol abuse, chronic pain. Patient presented to the emergency department chief complaint weakness and concern for electrolyte abnormality. Patient stating "I think my sodium is low." She states that she takes HCTZ and Lasix daily at home and drinks 6 glasses of water every day and roughly 2 "tall boy" beers per night. Patient stating she had been feeling weak and lightheaded last summer and at which time, she ended up at [facility] intensive care unit. Patient also endorsed polyuria but denied dysuria. Patient was recently discharged from another facility due to cellulitis and is still on her doxycycline course. The cellulitis has improved. She states she has been eating normally. Initial sodium 122. Patient was admitted to the hospitalist service for further evaluation and management. He was admitted and observed over the course of one night and on day of discharge, her sodium and magnesium were normal. Urinalysis negative. Tox screen negative. Patient was alert and oriented 3 and tolerated a regular diet while admitted. She was started on B vitamins and folic acid. She states she is does not want to stop drinking alcohol. Nephrology was brought on board during this admission who recommended a 2 L fluid restriction per day, stopping her HCTZ, and cleared her for outpatient follow-up with nephrology. She was also instructed to eat salty foods while drinking alcohol. She was discharged home in stable condition with close outpatient follow-up recommended. - Time Spent with Patient Total time spent providing and/or coordinating discharge services: - Constitutional Vitals: Temp Pulse Resp BP Pulse Ox 97.4 F L 80 16 108/75 97 10/26/16 07:40 10/26/16 07:40 10/26/16 07:40 10/26/16 07:40 10/26/16 07:40 General appearance: Present: cooperative, A&O X 3, morbidly obese, pleasant, no acute distress, answers questions appropriately - Head Head exam: Present: atraumatic, normocephalic - Eye Eye exam: Present: PERRL, conjuntiva pink, sclera anicteric Pupils: Present: PERRL - Neck Neck exam general surgery: Present: supple, trachea midline. Absent: lymphadenopathy - Respiratory Respiratory exam: Present: CTAB. Absent: accessory muscle use, rales, respiratory distress, rhonchi, wheezes - Cardiovascular Cardiovascular exam: Present: RRR, +S1, +S2. Absent: diastolic murmur, gallop, rubs, systolic murmur - GI/Abdominal GI/Abdominal exam: Present: normal bowel sounds, soft, no peritoneal signs. Absent: distended, tenderness - Extremities Exam Extremities exam: Present: warm, radial pulses palpable and symetrical. Absent : calf tenderness, cyanotic, pedal edema - Neurological Exam Neurological exam: Present: alert, CN II-XII intact, normal gait, oriented X3, no focal deficits, strengths equal and symetr throughout. Absent: pronater drift, facial droop, speech deficit - Skin Skin exam: Present: dry, intact, pallor, warm
[2016-10-26] MEDS ORDERED: Budesonide/Formoterol 160/4.5 MDI IH SCH (21:00)
== END 2016-10-26 12:26 | disposition home or self-care (01) | DRG 425 ==
LOC: 3BNU 16:42 → EMEROO 16:42 → 3BNU 10-25 00:16
PROVIDERS: ADMIT Internal Medicine; ATTEND Nurse Practitioner Family

== ENCOUNTER 2017-03-27 02:24 | Observation (INO) ==
[2017-03-27] MEDS ORDERED: Ondansetron ODT 4 MG TAB.RAPDIS SL ONE (02:48)
[2017-03-27] MEDS ORDERED: 0.9 % Sodium Chloride 1,000 ML IVC ONE ×2 (02:50→04:38)
--- NOTE | 2017-03-27 03:00 | Emergency Department Note ---
Disposition Clinical Impression: Chronic alcohol abuse, Hyponatremia Nausea and vomiting Qualifiers: Vomiting type: unspecified Vomiting Intractability: intractable Qualified Code( s): R11.2 - Nausea with vomiting, unspecified Disposition: Admitted As Inpatient Condition: Fair Time of Disposition: 05:37 General Adult HPI - General Chief complaint: ED Psychiatric Symptoms Stated complaint: Anxiety attack / Trouble peeing / N/V Time Seen by Provider: 03/27/17 02:41 Source: patient Mode of arrival: ambulatory Limitations: no limitations Nursing Notes Reviewed: Yes Vital Signs Reviewed: Yes - History of Present Illness HPI Narrative: Patient presents to the ED with the chief complaint of abdominal pain, nausea and vomiting. She reports that she "got really drunk." Yesterday and woke up with a hangover this morning. States that since this morning. She has had uncontrollable nausea and vomiting to the point where she cannot keep anything down. She complains of right lower quadrant abdominal pain as well as some epigastric pain that radiates into her chest. States that she has a history of anxiety and her symptoms are making her feeling just. She also complains of a headache from throwing up so much. States that she feels dehydrated. She also complains of difficulty urinating. States that she sits down and it takes a long time for her urine stream to start. No previous abdominal surgeries. Pain Scale: 10 - Related Data Home Medications Medication Instructions Recorded Confirmed Montelukast [Singulair] 10 mg PO DAILY 12/05/15 03/27/17 Ranitidine HCl [Heartburn Relief] 300 mg PO DAILY 12/05/15 03/27/17 amLODIPine [Norvasc] 5 mg PO DAILY 04/09/16 03/27/17 Allopurinol [Zyloprim 100 MG] 100 mg PO DAILY 10/24/16 03/27/17 Gabapentin [Neurontin] 100 mg PO QID 10/24/16 03/27/17 Lansoprazole [Prevacid] 30 mg PO DAILY 10/24/16 03/27/17 Losartan [Cozaar] 25 mg PO DAILY 10/24/16 03/27/17 Mometasone/Formoterol [Dulera 200 2 puff IH BID 10/24/16 03/27/17 Mcg/5 Mcg Inhaler] Multivitamin with Iron 1 each PO DAILY 10/24/16 03/27/17 [Multivitamins with Iron] Ondansetron HCl [Zofran] 4 mg PO Q8H PRN 10/24/16 03/27/17 OxyCODONE/APAP 5/325 [Percocet 1 each PO Q6H PRN 10/24/16 03/27/17 5/325 MG] Simvastatin [Zocor] 20 mg PO HS 10/24/16 03/27/17 Umeclidinium [place] [Incruse 62.5 mcg IH DAILY 10/24/16 03/27/17 Ellipta] Previous Rx's Medication Instructions Recorded Albuterol Neb [Proventil Neb] 2.5 mg IH Q4HR PRN #120 vial.neb 04/14/16 Albuterol Sulfate [Proair Hfa] 2 puff IH Q4-6H PRN #1 inh 04/14/16 Magnesium Oxide [Mag-Ox] 400 mg PO BID #60 tablet 10/26/16 Thiamine (B-1) [Vitamin B-1] 100 mg PO DAILY #30 tablet 10/26/16 HydrOXYzine Pamoate [Vistaril] 50 mg PO Q6HR #20 capsule 12/11/16 Allergies Allergy/AdvReac Type Severity Reaction Status Date / Time hydrocodone [From Vicodin] AdvReac Hives Verified 03/27/17 02:30 sulfamethoxazole AdvReac Itching Verified 03/27/17 02:30 [From Bactrim] trimethoprim [From Bactrim] AdvReac Itching Verified 03/27/17 02:30 All systems ED: reviewed and negative except as stated. Constitutional: Denies: fever Cardiovascular: Denies: chest pain Respiratory: Denies: dyspnea Gastrointestinal: Reports: abdominal pain, nausea, vomiting Musculoskeletal: Denies: back pain Neurological: Reports: headache Past Medical History - Past Medical History Attestation: Yes The following information was validated with the patient. Source: patient Medical history: Reports: arthritis, asthma, GERD, hyperlipidemia, hypertension Surgical history: Reports: orthopedic, other (Left ankle and leg fracture repair surgery) Psychiatric history: Reports: anxiety, bipolar, depression, prior suicide attempt, previous psychiatric hospitalization LINEN ATTENDANT history: Reports: no LINEN ATTENDANT history - Social History Smoking Status: Never smoker Smokeless Tobacco Status: No Alcohol use: Reports: occasionally Drug use: Reports: none Physical Exam - General Limitations: no limitations General appearance: alert, in no apparent distress - Head Head exam: atraumatic, normocephalic, normal inspection - Chest Chest inspection: Present: normal inspection, symmetric chest wall rise - Respiratory Respiratory exam: Present: normal lung sounds bilaterally - Cardiovascular Cardiovascular exam: Present: regular rate, normal rhythm, normal heart sounds - Abdominal Exam Abdominal exam: Present: soft, tenderness, tenderness at [place] Point. Absent: distention, guarding Abdominal tenderness: Present: RLQ, mild - Extremities Exam Extremities exam: Present: normal inspection, full ROM. Absent: tenderness, pedal edema - Back Exam Back exam: Present: normal inspection, full ROM. Absent: tenderness - Neurological Exam Neurological exam: Present: alert, oriented X3 - Psychiatric Psychiatric exam: Present: anxious - Skin Skin exam: Present: warm, dry, intact, normal color Course Course Narrative: 46 -year-old female presenting with right lower quadrant abdominal pain, nausea , vomiting. Requesting Benadryl and Zofran. We will give IV fluids. Likely just hung over, but she does point exactly to McBurney's point when she is asked where she hurts. We will also obtain a CT of her belly. - Reevaluation(s) Reevaluation #1: Hyponatremia with history of likely secondary to alcohol. We will admit for repletion. Patient states she did not feel comfortable to go home Vital Signs Temperature 97.8 F 03/27/17 02:26 Pulse Rate 98 03/27/17 02:26 Respiratory Rate 98 03/27/17 02:26 Blood Pressure 144/98 03/27/17 02:26 O2 Sat by Pulse Oximetry 97 03/27/17 02:26 Temperature 97.8 F 03/27/17 02:26 Pulse Rate 88 03/27/17 03:35 Respiratory Rate 18 03/27/17 05:52 Blood Pressure 141/98 03/27/17 05:52 O2 Sat by Pulse Oximetry 97 03/27/17 03:35 Oxygen Delivery Oxygen Delivery Room Air Medical Decision Making - Medical Records Medical records reviewed: Yes I reviewed the patient's medical records. - Lab Data Lab results reviewed: Yes I reviewed the patient's lab results. Result diagrams: 03/27/17 03:00 Lab Results 03/27/17 03/27/17 03/27/17 Range/Units 03:00 03:00 03:55 Sodium 123 L (136-145) mEq/L Potassium 3.7 (3.5-4.5) mEq/L Chloride 84 L (98-109) mEq/L Carbon Dioxide 23 (19-29) mEq/L BUN 6 L (7-20) mg/dL Creatinine 0.78 (0.57-1.11) mg/dL Est GFR ( Amer) > 60 (> 60) Est GFR (Non-Af Amer) > 60 (> 60) BUN/Creatinine Ratio 8 (6-26) Glucose 102 H (70-99) mg/dL Calculated Osmolality 254 L (280-300) Calcium 10.0 (8.6-10.8) mg/dL Total Bilirubin 0.7 (0.2-1.2) mg/dL Direct Bilirubin 0.3 (0.0-0.5) mg/dL Indirect Bilirubin 0.4 (0.0-1.2) mg/dL AST 34 (5-34) Units/L ALT 25 (0-55) Units/L Alkaline Phosphatase 111 (38-126) Units/L Troponin I 0.01 (0-0.03) ng/mL Serum Total Protein 8.9 H (6.0-8.3) g/dL Albumin 4.5 (3.5-5.0) g/dL Globulin 4.4 H (2.4-3.5) g/dL Albumin/Globulin Ratio 1.0 L (1.1-2.2) Lipase 10 (8-78) Units/L Urine Color Yellow (Yellow) Urine Clarity Cloudy A (Clear) Urine pH 5.5 (5.0-8.0) pH Units Ur Specific [place] 1.019 (1.010-1.025) Urine Protein 30 H (Neg-Trace) mg/dL Urine Glucose (UA) Normal (Normal) mg/dL Urine Ketones Negative (Negative) mg/dL Urine Blood Negative (Negative) Urine Nitrite Negative (Negative) Urine Bilirubin Negative (Negative) Urine Urobilinogen Normal (Normal) mg/dL Ur Leukocyte Esterase Negative (Negative) Urine Microscopic RBC 0-3 (0-3) per hpf Urine Microscopic WBC 0-3 (0-3) per hpf Ur Squamous Epith Cells Many H (None-Few) per lpf Amorphous Sediment Moderate H (Few) Urine Bacteria Moderate H (None-Few) per hpf Hyaline Casts Few (None-Few) per lpf Ur Culture Indicated? NO (NO) Urine Test (Negative) 03/27/17 Range/Units 03:55 Sodium (136-145) mEq/L Potassium (3.5-4.5) mEq/L Chloride (98-109) mEq/L Carbon Dioxide (19-29) mEq/L BUN (7-20) mg/dL Creatinine (0.57-1.11) mg/dL Est GFR ( Amer) (> 60) Est GFR (Non-Af Amer) (> 60) BUN/Creatinine Ratio (6-26) Glucose (70-99) mg/dL Calculated Osmolality (280-300) Calcium (8.6-10.8) mg/dL Total Bilirubin (0.2-1.2) mg/dL Direct Bilirubin (0.0-0.5) mg/dL Indirect Bilirubin (0.0-1.2) mg/dL AST (5-34) Units/L ALT (0-55) Units/L Alkaline Phosphatase (38-126) Units/L Troponin I (0-0.03) ng/mL Serum Total Protein (6.0-8.3) g/dL Albumin (3.5-5.0) g/dL Globulin (2.4-3.5) g/dL Albumin/Globulin Ratio (1.1-2.2) Lipase (8-78) Units/L Urine Color (Yellow) Urine Clarity (Clear) Urine pH (5.0-8.0) pH Units Ur Specific [place] (1.010-1.025) Urine Protein (Neg-Trace) mg/dL Urine Glucose (UA) (Normal) mg/dL Urine Ketones (Negative) mg/dL Urine Blood (Negative) Urine Nitrite (Negative) Urine Bilirubin (Negative) Urine Urobilinogen (Normal) mg/dL Ur Leukocyte Esterase (Negative) Urine Microscopic RBC (0-3) per hpf Urine Microscopic WBC (0-3) per hpf Ur Squamous Epith Cells (None-Few) per lpf Amorphous Sediment (Few) Urine Bacteria (None-Few) per hpf Hyaline Casts (None-Few) per lpf Ur Culture Indicated? (NO) Urine Test Negative (Negative) - Radiology Data Radiology results reviewed: Yes I reviewed the patient's radiology results. - EKG Data EKG #1 EKG attestation: Yes I reviewed and interpreted this EKG. EKG results narrative: Sinus rhythm, rate 95, CO interval 189, QRS 93, QTC 397, left axis deviation, no acute ischemic changes. Pete - Pete Situation: Demographics, MOA Background: Presenting Complaint, Relevant PMH, Meds, & Allergies Assessment: Vital Signs, Course and respsone to treatment, Exam Concerns, Patient/Family Expectation, Pertinant Lab Results, Outstanding Labs Recommendation: Barrier(s) to disposition, Recommendation based on pending studies, treatments, or consults S.Tom Report Given to: Dr. Javier Freeman Repor Time: 05:37 Attestation Statement - Attestation Attestation: I, Pedro Luis Townsend MD, personally evaluated this patient and discussed their management with the resident physician. I reviewed the resident's note and agree with the documented findings, medical decision making, and plan of care. 46-year-old female presents to the emergency department with a complaint of nausea and vomiting all day today associated with right lower quadrant abdominal pain. No fever. No melena, hematemesis, or hematochezia. No dysuria or gross hematuria. There has been decreased urine output. Patient admits to drinking heavily yesterday but this is not unusual. She also complains of headache and reports that she feels dehydrated. On examination patient is a well-developed obese female in no acute distress. She is alert and oriented 3. There is no cyanosis or diaphoresis. Chest is nontender to palpation. Breath sounds are clear and equal bilaterally. Heart regular rate and rhythm. Abdomen is soft with increased bowel sounds. There is moderate right lower quadrant tenderness on direct palpation. No guarding or rebound tenderness noted. No CVA tenderness. Labs reviewed. Sodium 122. CT of the abdomen and pelvis shows no acute intra- abdominal abnormality. EKG shows a normal sinus rhythm with no acute ischemic changes. The hospitalist, Dr. Herrera, was consulted and accepted admission of the patient.
[2017-03-27 03:31] LABS: Alanine Aminotransferase 25 Units/L (0-55); Albumin 4.5 g/dL (3.5-5.0); Alkaline Phosphatase 111 Units/L (38-126); Aspartate Amino Transferase 34 Units/L (5-34); BUN/Creatinine Ratio 8 (6-26); Bilirubin,Direct 0.3 mg/dL (0.0-0.5); Bilirubin,Indirect 0.4 mg/dL (0.0-1.2); Bilirubin,Total 0.7 mg/dL (0.2-1.2); Blood Urea Nitrogen 6 mg/dL (7-20); Carbon Dioxide 23 mEq/L (19-29); Chloride 84 mEq/L (98-109); Globulin 4.4 g/dL (2.4-3.5); Glucose 102 mg/dL (70-99); Lipase 10 Units/L (8-78); Osmolality,Calculated 254 (280-300); Potassium 3.7 mEq/L (3.5-4.5); Total Protein 8.9 g/dL (6.0-8.3); eGFR For African Americans > 60 (> 60); eGFR For Non-African Americans > 60 (> 60)
[2017-03-27 03:32] LABS: Sodium 123 mEq/L (136-145)
[2017-03-27] MEDS ORDERED: *HR* LORazepam 2 MG/ML VIAL IVP ONE (03:52)
[2017-03-27 04:01] LABS: Bilirubin,Urine Negative (Negative); Blood,Urine Negative (Negative); Clarity,Urine Cloudy (Clear); Color,Urine Yellow (Yellow); Glucose,Urine (UA) Normal (Normal); Ketones,Urine Negative (Negative); Leukocyte Esterase,Urine Negative (Negative); Nitrite,Urine Negative (Negative); PH,Urine 5.5 pH Units (5.0-8.0); Protein,Urine 30 mg/dL (Neg-Trace); Specific Gravity,Urine 1.019 (1.010-1.025); Urobilinogen,Urine Normal (Normal)
[2017-03-27 04:03] LABS: RBC,Urine 0-3 per hpf (0-3); Squamous Epithelial Cell,Urine Many per lpf (None-Few); WBC,Urine 0-3 per hpf (0-3)
[2017-03-27 04:16] LABS: Amorphous Sediment,Urine Moderate (Few); Bacteria,Urine Moderate per hpf (None-Few); Hyaline Casts,Urine Few per lpf (None-Few)
[2017-03-27] MEDS ORDERED: Ondansetron ODT 4 MG TAB.RAPDIS SL PRN (07:28)
[2017-03-27] MEDS ORDERED: Naloxone 0.4 MG/ML INJ IVP PRN (07:28)
--- NOTE | 2017-03-27 08:16 | Internal Med History&Physical ---
Date of Encounter: 03/27/17 Time of Encounter: 08:16 Assessment and Plan (1) Hyponatremia Current visit: Yes Status: Acute 1 patient's sodium on presentation was 123 -this is most likely multifactorial related to vomiting alcohol intoxication, polydipsia. -She was seen here this facility a few months back for similar episode. She was given IV fluids in the ER. For now we will restrict fluid intake recheck her sodium in a few hours- no altered mental state this time-no seizure activity 2 we will restrict fluid 1500 mL daily 3 encouraged patient to stop drinking alcohol 4 seizure precautions 5 antiemetics 6 monitor intake and output (2) Chronic alcohol abuse Current visit: Yes Status: Chronic 1 patient admits to drinking approximately 3 24 ounce beers daily, she admits to getting "drunk"yesterday and experiencing nausea and vomiting 2 we will give antiemetics as needed 3 CIWA 4 seizure precautions (3) Essential hypertension Current visit: No Status: Chronic 1 presently controlled we will continue with home medications (4) DVT prophylaxis Current visit: No Status: Acute Lovenox [facility] Internal Medicine - H&P: HPI Chief complaint: abd pain Admitted From: Emergency Dept Plans for Post Hospital Care: Home History of present illness: Ms. Su is a 46 year old female past medical history of hypertension hyperlipidemia alcohol abuse bipolar previous admissions for hyponatremia polydipsia. According to the patient yesterday she got really drunk and had been experiencing nausea and vomiting all through the night. She is unable to keep anything down and has been experiencing right lower quadrant abdominal pain as well as epigastric pain. She also complains of a headache from vomiting so much as well as difficulty urinating. She presented to the ER with the above complaints. According to ER records a CT of abdomen was obtained and was negative. Vital signs were stable on presentation her sodium was 123 potassium 3.7 creatinine was 0.78 lipase was 10 troponin was 0.01. Patient does admit that she does drink daily 2-3 beers as well as she drinks a large amount of water throughout the day. She denies any recent diuretic use states she used to be on lithium for her bipolar but that was discontinued as well as her diuretics. She denies any fevers chills chest pain or shortness of breath. She has been admitted for further workup or evaluation. Presently patient appears to be groggy she does arouse to verbal stimuli and does follow simple commands. Her pupils are equal and reactive bilaterally she has equal strength in all 4 extremities cranial nerves II through XII are intact. No seizure activity noted at this time. Lung sounds are clear heart sounds are regular S1 and S2 with no rubs clicks gallops or murmurs noted abdomen soft nontender palpation. No pedal edema noted. She is hemodynamically stable at this time. I did review this case with who agrees with plan Past Med Surg Social Fam HX - Past Medical History Medical history: arthritis, asthma, GERD, hyperlipidemia, hypertension Psychiatric history: anxiety, bipolar, depression, prior suicide attempt, previous psychiatric hospitalization - Past Surgical History Surgical History: orthopedic, other - Social History Smoking Status: Never smoker Smokeless Tobacco Status: No Alcohol use: occasionally Drug use: none - Family History Mother Living Status: Still Living Hx Family Cardiac Disorders: Yes (HTN) Hx Family Cancer: Yes (Uterine CA) Father Hx Family Neurologic Disorders: Yes (CVA) Internal Medicine - H&P: Meds Montelukast [Singulair] 10 mg PO DAILY 12/05/15 [History] Ranitidine HCl [Heartburn Relief] 300 mg PO DAILY 12/05/15 [History] amLODIPine [Norvasc] 5 mg PO DAILY 04/09/16 [History] Albuterol Neb [Proventil Neb] 2.5 mg IH Q4HR PRN #120 vial.neb 04/14/16 [Rx] Albuterol Sulfate [Proair Hfa] 2 puff IH Q4-6H PRN #1 inh 04/14/16 [Rx] Gabapentin [Neurontin] 400 mg PO QID 10/24/16 [History] Lansoprazole [Prevacid] 30 mg PO DAILY 10/24/16 [History] Losartan [Cozaar] 25 mg PO DAILY 10/24/16 [History] Mometasone/Formoterol [Dulera 200 Mcg/5 Mcg Inhaler] 2 puff IH BID 10/24/16 [ History] Multivitamin with Iron [Multivitamins with Iron] 1 each PO DAILY 10/24/16 [ History] Ondansetron HCl [Zofran] 4 mg PO Q8H PRN 10/24/16 [History] OxyCODONE/APAP 5/325 [Percocet 5/325 MG] 1 each PO Q6H PRN 10/24/16 [History] Simvastatin [Zocor] 20 mg PO HS 10/24/16 [History] Umeclidinium [place] [Incruse [place]] 62.5 mcg IH DAILY 10/24/16 [History] Magnesium Oxide [Mag-Ox] 400 mg PO BID #60 tablet 10/26/16 [Rx] Thiamine (B-1) [Vitamin B-1] 100 mg PO DAILY #30 tablet 10/26/16 [Rx] HydrOXYzine Pamoate [Vistaril] 50 mg PO Q6HR #20 capsule 12/11/16 [Rx] 3 Allergy/AdvReac Type Severity Reaction Status Date / Time hydrocodone [From Vicodin] AdvReac Hives Verified 03/27/17 02:30 sulfamethoxazole AdvReac Itching Verified 03/27/17 02:30 [From Bactrim] trimethoprim [From Bactrim] AdvReac Itching Verified 03/27/17 02:30 All Systems PM: A 10-system review of systems was performed and is negative for pertinent findings except as documented above in the HPI. - Constitutional Constitutional: fatigue - EENT Eyes: no change in vision, no discharge, no pain, no photophobia - Cardiovascular Cardiovascular ROS IM: no chest pain, no diaphoresis, no dyspnea, no lightheadedness, no palpitations, no syncope - Respiratory Respiratory: no cough, no dyspnea, no wheezing, no excessive phlegm production - Gastrointestinal Gastrointestinal: abdominal pain, nausea, vomiting - Genitourinary Genitourinary: no change in urinary stream, no dysuria, no flank pain, no hematuria - Musculoskeletal Musculoskeletal ROS IM: no numbness, no tingling - Integumentary Integumentary IM: no rash, no unusual bruising - Neurological Neurological ROS: no confusion, no convulsions, no focal weakness, no numbness, no tingling, no tremor(s) - Endocrine Endocrine IM: polydipsia - Hematologic/Lymphatic Hematologic/Lymphatic: no easy bruising - Constitutional Vitals: Temp Pulse Resp BP Pulse Ox 98.7 F 89 16 119/86 95 03/27/17 07:07 03/27/17 07:07 03/27/17 07:07 03/27/17 07:07 03/27/17 07:07 General appearance: Present: A&O X 3 Exam: She is groggy - Head Head exam: Present: atraumatic, normocephalic - Eye Eye exam: Present: PERRL, conjuntiva pink, sclera anicteric Pupils: Present: PERRL - Neck Neck exam general surgery: Present: supple, trachea midline. Absent: lymphadenopathy - Respiratory Respiratory exam: Present: CTAB. Absent: accessory muscle use, rales, rhonchi, wheezes - Cardiovascular Cardiovascular exam: Present: RRR, +S1, +S2. Absent: diastolic murmur, gallop, rubs, systolic murmur - GI/Abdominal GI/Abdominal exam: Present: normal bowel sounds, soft, no peritoneal signs. Absent: distended, tenderness - Extremities Exam Extremities exam: Present: warm, radial pulses palpable and symmetrical. Absent : calf tenderness, cyanotic, pedal edema - Neurological Exam Neurological exam: Present: CN II-XII intact, oriented X3, no focal deficits. Absent: pronater drift, facial droop, speech deficit - Skin Skin exam: Present: dry, intact Internal Med - H&P Results - Labs CBC & Chem 7: 03/27/17 11:52 - EKG Data EKG shows normal: sinus rhythm - EKG Data Prior EKG available for review: yes When compared to previous EKG: there is no significant change EKG comments: 03/27/17 14:10 EKG was sinus rhythm - Diagnostic Studies Other Images Additional comments: Abdomen/Pelvis CT 03/27/17 02:47 IMPRESSION: No acute findings. D/ / Chaka Draper MD / Chaka Draper MD Interpreting Provider: Chaka Draper MD
[2017-03-27] MEDS: Albuterol 2.5 MG/3 ML NEBULIZER IH SCH ×5 (08:26→23:26)
[2017-03-27 08:35] LABS: BUN/Creatinine Ratio 7 (6-26); Blood Urea Nitrogen 5 mg/dL (7-20); Calcium 9.8 mg/dL (8.6-10.8); Carbon Dioxide 24 mEq/L (19-29); Chloride 91 mEq/L (98-109); Glucose 102 mg/dL (70-99); Osmolality,Calculated 257 (280-300); Potassium 4.1 mEq/L (3.5-4.5); Sodium 125 mEq/L (136-145); eGFR For African Americans > 60 (> 60); eGFR For Non-African Americans > 60 (> 60)
[2017-03-27] MEDS: Multivit/Ca/Min/Fe/FA 1 TAB TABLET PO SCH (09:30)
[2017-03-27] MEDS: Famotidine 20 MG TABLET PO SCH ×2 (09:30→20:04)
[2017-03-27] MEDS: Thiamine (B-1) 100 MG TABLET PO SCH (09:30)
[2017-03-27] MEDS: Magnesium Oxide 400 MG TABLET PO SCH ×2 (09:30→20:05)
[2017-03-27] MEDS: (Umeclidinium Bromide [Incruse Ellipta] 62.5 MCG) IH SCH (09:31)
[2017-03-27] MEDS: Ipratropium/Albuterol Neb 3 ML IH SCH ×4 (11:00→20:16)
[2017-03-27 12:15] LABS: BUN/Creatinine Ratio 8 (6-26); Calcium 9.8 mg/dL (8.6-10.8); Carbon Dioxide 26 mEq/L (19-29); Chloride 94 mEq/L (98-109); Glucose 99 mg/dL (70-99); Osmolality,Calculated 267 (280-300); Potassium 3.9 mEq/L (3.5-4.5); Sodium 130 mEq/L (136-145); eGFR For African Americans > 60 (> 60); eGFR For Non-African Americans > 60 (> 60)
[2017-03-27 12:16] LABS: Blood Urea Nitrogen 5 mg/dL (7-20)
[2017-03-27] MEDS ORDERED: *HR* LORazepam 2 MG/ML VIAL IVP PRN ×3 (14:27)
[2017-03-27] MEDS ORDERED: 0.9 % Sodium Chloride 1,000 ML IVC SCH (15:00)
[2017-03-27 15:12] LABS: BUN/Creatinine Ratio 7 (6-26); Calcium 9.8 mg/dL (8.6-10.8); Carbon Dioxide 26 mEq/L (19-29); Chloride 95 mEq/L (98-109); Glucose 100 mg/dL (70-99); Osmolality,Calculated 271 (280-300); Sodium 132 mEq/L (136-145); eGFR For African Americans > 60 (> 60); eGFR For Non-African Americans > 60 (> 60)
[2017-03-27 15:16] LABS: Blood Urea Nitrogen 5 mg/dL (7-20)
[2017-03-27] MEDS: Gabapentin 400 MG CAPSULE PO SCH ×2 (15:28→20:04)
[2017-03-27] MEDS ORDERED: *HR* OxyCODONE/APAP 5/325 TABLET PO PRN (18:31)
[2017-03-27 18:58] LABS: BUN/Creatinine Ratio 8 (6-26); Blood Urea Nitrogen 7 mg/dL (7-20); Calcium 9.7 mg/dL (8.6-10.8); Carbon Dioxide 27 mEq/L (19-29); Chloride 100 mEq/L (98-109); Glucose 100 mg/dL (70-99); Osmolality,Calculated 278 (280-300); Potassium 4.2 mEq/L (3.5-4.5); Sodium 135 mEq/L (136-145); eGFR For African Americans > 60 (> 60); eGFR For Non-African Americans > 60 (> 60)
[2017-03-27] MEDS: hydrOXYzine pamoate 25 MG CAPSULE PO SCH (20:53)
[2017-03-28] MEDS ORDERED: hydrOXYzine pamoate 25 MG CAPSULE PO SCH
[2017-03-28] MEDS: hydrOXYzine pamoate 25 MG CAPSULE PO SCH ×2 (02:29→07:39)
[2017-03-28] MEDS: Albuterol 2.5 MG/3 ML NEBULIZER IH SCH ×2 (04:52→07:42)
[2017-03-28] MEDS: Ipratropium/Albuterol Neb 3 ML IH SCH ×2 (04:53→08:56)
[2017-03-28 05:12] LABS: Basophils % 0.7 %; Eosinophils # 0.1 K/mcL (0.0-0.6); Eosinophils % 1.7 %; Hematocrit 32.7 % (35.3-44.9); Hemoglobin 10.5 g/dL (11.5-15.4); Immature Granulocytes % 0.3 % (0-4); Lymphocytes # 1.8 K/mcL (0.6-4.6); Lymphocytes % 31.3 %; Mean Corpuscular HGB Conc 32.1 g/dL (31.6-35.5); Mean Corpuscular Hemoglobin 29.2 pg (28.0-33.3); Mean Corpuscular Volume 91.1 fL (83.0-100.0); Mean Platelet Volume 10.8 fL (9.4-12.4); Monocytes # 0.6 K/mcL (0.0-1.3); Monocytes % 9.7 %; Neutrophils # 3.2 K/mcL (1.6-8.9); Platelet Count 214 K/mcL (140-400); Red Blood Count 3.59 M/mcL (3.82-4.97); Red Cell Distribution Width 14.2 % (11.5-14.5); Segmented Neutrophils % 56.3 %
[2017-03-28] MEDS ORDERED: *HR* Enoxaparin 40 MG/0.4 ML SYRINGE SQ SCH (06:00)
[2017-03-28 06:34] VITALS: BP 113/77
[2017-03-28] MEDS: Magnesium Oxide 400 MG TABLET PO SCH (07:38)
[2017-03-28] MEDS: Thiamine (B-1) 100 MG TABLET PO SCH (07:38)
[2017-03-28] MEDS: Gabapentin 400 MG CAPSULE PO SCH (07:38)
[2017-03-28] MEDS: Multivit/Ca/Min/Fe/FA 1 TAB TABLET PO SCH (07:38)
[2017-03-28] MEDS: Famotidine 20 MG TABLET PO SCH (07:38)
[2017-03-28] MEDS: (Umeclidinium Bromide [Incruse Ellipta] 62.5 MCG) IH SCH (07:39)
[2017-03-28] MEDS ORDERED: amLODIPine 5 MG TABLET PO SCH (09:00)
--- NOTE | 2017-03-28 09:03 | Discharge Summary ---
Date of Encounter: 03/28/17 Time of Encounter: 09:01 - Discharge Diagnosis (1) Hyponatremia Priority: Primary Status: Resolved (2) Nausea and vomiting Priority: Primary Status: Acute Qualifiers: Vomiting type: unspecified Vomiting Intractability: intractable Qualified Code(s): R11.2 - Nausea with vomiting, unspecified (3) GERD (gastroesophageal reflux disease) Priority: Secondary Status: Chronic Qualifiers: Esophagitis presence: esophagitis presence not specified Qualified Code(s) : K21.9 - Gastro-esophageal reflux disease without esophagitis (4) Essential hypertension Priority: Secondary Status: Chronic (5) Chronic alcohol abuse Priority: Secondary Status: Chronic - Discharge Medications Prescriptions: Albuterol Sulfate [Proair Hfa] 2 puff IH Q6H PRN #1 inh PRN Reason: Shortness Of Breath/Wheezing Lansoprazole [Prevacid] 30 mg PO DAILY #30 Ondansetron HCl [Zofran] 4 mg PO Q8H PRN #15 PRN Reason: Nausea Ranitidine HCl [Heartburn Relief] 300 mg PO DAILY #30 Home Medications: Montelukast [Singulair] 10 mg PO DAILY 12/05/15 [History] amLODIPine [Norvasc] 5 mg PO DAILY 04/09/16 [History] Albuterol Neb [Proventil Neb] 2.5 mg IH Q4HR PRN #120 vial.neb 04/14/16 [Rx] Gabapentin [Neurontin] 400 mg PO QID 10/24/16 [History] Losartan [Cozaar] 25 mg PO DAILY 10/24/16 [History] Mometasone/Formoterol [Dulera 200 Mcg/5 Mcg Inhaler] 2 puff IH BID 10/24/16 [ History] Multivitamin with Iron [Multivitamins with Iron] 1 each PO DAILY 10/24/16 [ History] OxyCODONE/APAP 5/325 [Percocet 5/325 MG] 1 each PO Q6H PRN 10/24/16 [History] Simvastatin [Zocor] 20 mg PO HS 10/24/16 [History] Umeclidinium [place] [Incruse Ellipt[place]] 62.5 mcg IH DAILY 10/24/16 [History] Magnesium Oxide [Mag-Ox] 400 mg PO BID #60 tablet 10/26/16 [Rx] Thiamine (B-1) [Vitamin B-1] 100 mg PO DAILY #30 tablet 10/26/16 [Rx] HydrOXYzine Pamoate [Vistaril] 50 mg PO Q6HR #20 capsule 12/11/16 [Rx] Albuterol Sulfate [Proair Hfa] 2 puff IH Q6H PRN #1 inh 03/28/17 [Rx] Lansoprazole [Prevacid] 30 mg PO DAILY #30 03/28/17 [Rx] Ondansetron HCl [Zofran] 4 mg PO Q8H PRN #15 03/28/17 [Rx] Ranitidine HCl [Heartburn Relief] 300 mg PO DAILY #30 03/28/17 [Rx] Allergies/Adverse Reactions: 3 Allergy/AdvReac Type Severity Reaction Status Date / Time hydrocodone [From Vicodin] AdvReac Hives Verified 03/27/17 02:30 sulfamethoxazole AdvReac Itching Verified 03/27/17 02:30 [From Bactrim] trimethoprim [From Bactrim] AdvReac Itching Verified 03/27/17 02:30 Date of admission: 03/27/17 18:00 Primary care physician: PCP NONE - Patient Status Disposition: Home, Self-Care Condition: Good Overall status at discharge: patient is back to baseline - Discharge Instructions Follow Up With: NONE,PCP [Primary Care Provider] - Additional Instructions: Need to f/u with PCP in one week Need to go for walk in alcohol rehab clinics - Diet and Activity Activity: increase activity as tolerated Diet: advance to your usual diet Hospital course: Ms. Su is a 46 year old female past medical history of hypertension hyperlipidemia alcohol abuse bipolar previous admissions for hyponatremia polydipsia. According to the patient yesterday she got really drunk and had been experiencing nausea and vomiting all through the night. She is unable to keep anything down and has been experiencing right lower quadrant abdominal pain as well as epigastric pain. She also complains of a headache from vomiting so much as well as difficulty urinating. She presented to the ER with the above complaints. According to ER records a CT of abdomen was obtained and was negative. Pt was admitted here for acute hyponatremia due to mild dehydration with intractable nausea and vomiting. She was started on gentle hydration and monitor her Na closely. Her sodium got corrected gently, this morning her Na was 139. She is tolerating PO intake well. No more nausea and vomiting. Counseled to quit drinking alcohol and consulted SW to educate the [t about walk in alcohol rehab clinics. - Time Spent with Patient Total time spent providing and/or coordinating discharge services: - Constitutional Vitals: Temp Pulse Resp BP Pulse Ox 97.7 F 82 12 113/77 92 03/28/17 06:31 03/28/17 06:31 03/28/17 07:43 03/28/17 06:31 03/28/17 07:43 General appearance: Present: A&O X 3, no acute distress, answers questions appropriately - Head Head exam: Present: atraumatic, normal inspection - Respiratory Respiratory exam: Present: decreased breath sounds, wheezes. Absent: rales, respiratory distress, rhonchi - Cardiovascular Cardiovascular exam: Present: RRR, +S1, +S2. Absent: systolic murmur - GI/Abdominal GI/Abdominal exam: Present: normal bowel sounds, soft. Absent: distended, guarding, tenderness - Extremities Exam Extremities exam: Absent: calf tenderness, pedal edema, tenderness - Neurological Exam Neurological exam: Present: alert, oriented X3 - Psychiatric Psychiatric exam: Present: normal affect, normal mood
[2017-03-28 09:42] LABS: Alanine Aminotransferase 17 Units/L (0-55); Albumin/Globulin Ratio 0.9 (1.1-2.2); Alkaline Phosphatase 85 Units/L (38-126); Aspartate Amino Transferase 22 Units/L (5-34); BUN/Creatinine Ratio 12 (6-26); Bilirubin,Total 0.4 mg/dL (0.2-1.2); Blood Urea Nitrogen 9 mg/dL (7-20); Calcium 9.4 mg/dL (8.6-10.8); Carbon Dioxide 29 mEq/L (19-29); Chloride 101 mEq/L (98-109); Globulin 3.6 g/dL (2.4-3.5); Glucose 124 mg/dL (70-99); Osmolality,Calculated 288 (280-300); Potassium 3.8 mEq/L (3.5-4.5); Sodium 139 mEq/L (136-145); eGFR For African Americans > 60 (> 60); eGFR For Non-African Americans > 60 (> 60)
[2017-03-28 09:43] LABS: Albumin 3.2 g/dL (3.5-5.0); Total Protein 6.8 g/dL (6.0-8.3)
--- NOTE | 2017-03-29 12:33 | Electrocardiograph Report ---
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
== END 2017-03-28 10:57 | disposition home or self-care (01) ==
LOC: EMEROO 02:24 → 3ANU 02:24 → SUATTDRO 18:00
PROVIDERS: ADMIT Internal Medicine; ATTEND Family Medicine